=== PATIENT | female | born 1990 | race Hispanic/Latino ===

== ENCOUNTER 2017-11-01 03:59 | Outpatient (CLI) | payer OTHER | END 2017-11-01 04:00 | disposition home or self-care (01) | LOC: BICULT 03:59 | PROVIDERS: ATTEND Nurse Practitioner | DX: Z30.432 Encounter for removal of intrauterine contraceptive device (principal) | CPT/HCPCS: 76856 ==

== ENCOUNTER 2018-04-19 23:20 | Observation (INO) | payer SELFPAY ==
[2018-04-20] LABS: #Monocytes 0.7 thou/uL (0.11-0.59); #Neutrophils 14.4 thou/uL (1.40-6.50); %Basophils 0.1 % (0.0-1.0); %Eosinophils 0.1 % (0.0-10.0); %Lymphocytes 11.6 % (21.0-51.0); %Monocytes 4.2 % (0.0-10.0); Hemoglobin 11.1 g/dL (12.0-16.0); Mean Corpuscular HGB CONC 33.9 g/dL (32.0-36.0); Mean Corpuscular Hemoglobin 30.8 pg (27.0-31.0); Mean Corpuscular Volume 90.8 fl (81.0-99.0); Mean Platelet Volume 6.1 fL (7.4-10.4); Platelet Count 319 thou/uL (130-400); Red Blood Cell (RBC) Count 3.59 mill/uL (4.20-5.40); White Blood Cell (WBC) Count 17.1 thou/uL (4.8-10.8)
[2018-04-20] MEDS ORDERED: Midazolam HCl 2 mg/2 ml Vial ONE (00:13)
[2018-04-20] MEDS ORDERED: Bupivacaine HCl 0.5%/Epinephrine 1:200,000/PF 30 ml Vial ONE (00:13)
[2018-04-20] MEDS ORDERED: Fentanyl 250 MCG/5 ML VIAL ONE (00:13)
[2018-04-20] MEDS ORDERED: Fentanyl 100 MCG/2 ML VIAL ONE ×2 (00:21→03:33)
[2018-04-20] MEDS ORDERED: Promethazine HCl 25 MG/ML VIAL IM PRN (02:15)
[2018-04-20] MEDS ORDERED: Ondansetron HCl/PF 4 MG/2 ML Vial IVP PRN ×2 (02:15→03:13)
[2018-04-20] MEDS ORDERED: Promethazine HCl 25 MG/ML VIAL SLOW IVP PRN (02:15)
--- NOTE | 2018-04-20 02:40 | HP ---
DATE OF SERVICE: 04/20/2018 CHIEF COMPLAINT: Abdominal pain. HISTORY OF PRESENT ILLNESS: This is a 28-year-old, G3, P2 at approximately 6 weeks by last menstrual period, who presented to the emergency room with sudden onset of severe abdominal pain few hours ago . She reports that she just found out she was tonight at the emergency department. She den ies any significant vaginal bleeding or other concerns. REVIEW OF SYSTEMS: Negative for head, eyes, ears, nose, throat, cardiovascular, respiratory, GI, , neuro, psych, musculoskeletal, skin, or constitutional symptoms other than mentioned above. PAST MEDICAL HISTORY: None. PAST SURGICAL HISTORY: Eye surgery. MEDICATIONS: None. ALLERGIES: No known drug allergies. SOCIAL HISTORY: Negative for tobacco, alcohol, or drug abuse. FAMILY HISTORY: Noncontributory. OBSTETRIC AND GYNECOLOGIC HISTORY: Denies any history of STDs. Her last baby was 7 years ago. She has had 2 vaginal deliveries. PHYSICAL EXAMINATION: VITAL SIGNS: Blood pressure 76/47, pulse 85, respiratory rate 20, saturation 100% on room air. GENERAL: Awake, alert, appears uncomfortable, but in no acute distress. CHEST: Nonlabored breathing. ABDOMEN: Voluntary guarding. Tender to palpation in all quadrants. Positive rebound. IMAGING: Abdominal ultrasound was performed at bedside by Radiology revealing a soft tissue mass abo ve the uterus. No IUP. Positive free fluid. LABORATORY DATA: WBC 17.1, hemoglobin 11.1, hematocrit 32.6, platelets of 319,000. ASSESSMENT AND PLAN: A 28-year-old, G3, P2 with likely ruptured ectopic given the ultrasou nd findings and exam findings. Risks, benefits, and alternatives were discussed and the patient will proceed to the operating room for a diagnostic laparoscopy with likely salpingectomy.
[2018-04-20] MEDS ORDERED: Acetaminophen 325 MG TAB PO PRN (03:13)
[2018-04-20] MEDS ORDERED: Ondansetron ODT 4 MG TAB PO PRN (03:13)
--- NOTE | 2018-04-20 04:11 | OP ---
DATE OF SERVICE: 04/20/2018 PREOPERATIVE DIAGNOSIS: Suspected ruptured ectopic . POSTPROCEDURE DIAGNOSES: Ruptured right ectopic with hemoperitoneum. PROCEDURE PERFORMED: 1. Diagnostic laparoscopy with right salpingectomy and evacuation of hemoperitoneum. 2. Lysis of adhesions. SURGEON: Michelle Molina M.D. SEWING TRIMMER: None. ANESTHESIA: General endotracheal. COMPLICATIONS: None. ESTIMATED BLOOD LOSS: 25 mL with approximately 900 milliliters of hemoperitoneum. INDICATIONS: The patient was seen in the emergency room with abdominal pain, newly diagnosed pregnan cy and mass with free fluid in the abdomen. She was mildly hypertensive with an acute abdomen. FINDINGS: Normal appearing uterus, left tube appeared intact with some small adhesions to the omentu m. No masses were seen. Left ovary with multiple follicles and a small simple appearing cyst, right ovary was absent and the right fallopian tube was actively bleeding; however, the distal portion of the tube was absent as well. There was a large amount of hemoperitoneum noted. PROCEDURE IN DETAIL: The patient was taken to the operating room where general anesthesia was obtain ed without difficulty. She was prepared and draped in normal sterile fashion in the dorsal lithotomy position with Yellofin leg holders. A Coughlin catheter was placed. A [employer] uterine manipulator was a dvanced into the uterus without difficulty. Attention was turned to the abdomen where a 5 mm skin in cision was made in the infraumbilical fold. A Veress needle was advanced into the abdomen and the ab domen was insufflated with CO2 gas. The 5 mm trocar was advanced in the abdomen using a Visiport. A second 5 mm skin incision was made in the left lower quadrant and a 5 mm trocar was advanced into th e abdomen. The above findings were noted. The abdomen was suction irrigated. A 10 mm port was plac ed in the right lower quadrant. After careful examination of the left tube was noted to be essential ly normal with the exception of some mild adhesions and adherent blood clot. There was no active ble eding coming from the left adnexa. The right adnexa was noted to have the above findings. The remai misa portion of the tube was removed with LigaSure device with good hemostasis and that was sent to p athology. I spent approximately 30 minutes examining the abdomen for the other portion of the fallop barrington tube as well as the ectopic ; however, neither were visible. I suctioned as much blood and irrigation out of the abdomen if I could. The ports were then removed from the abdomen. The ski n was closed with 4-0 Monocryl and Dermabond. The incisions were injected with approximately 10 mL o f lidocaine. The patient tolerated the procedure well. Sponge, lap, and needle counts were correct x2. The patient was taken to recovery room in stable condition.
[2018-04-20 05:20] LABS: #Lymphocytes 0.7 thou/uL (1.20-3.40); #Monocytes 0.2 thou/uL (0.11-0.59); #Neutrophils 12.9 thou/uL (1.40-6.50); %Basophils 0.1 % (0.0-1.0); %Eosinophils 0.1 % (0.0-10.0); %Lymphocytes 4.8 % (21.0-51.0); %Monocytes 1.1 % (0.0-10.0); %Neutrophils 93.9 % (42.0-75.0); Hemoglobin 9.3 g/dL (12.0-16.0); Mean Corpuscular HGB CONC 33.8 g/dL (32.0-36.0); Mean Corpuscular Hemoglobin 30.5 pg (27.0-31.0); Mean Corpuscular Volume 90.3 fl (81.0-99.0); Mean Platelet Volume 6.5 fL (7.4-10.4); Platelet Count 217 thou/uL (130-400); RBC Distribution Width 12.9 % (11.5-14.5); Red Blood Cell (RBC) Count 3.05 mill/uL (4.20-5.40); White Blood Cell (WBC) Count 13.7 thou/uL (4.8-10.8)
[2018-04-20] MEDS: Sodium Chloride 0.9% 1,000 ML IV SCH ×2 (06:19→12:54)
[2018-04-20] MEDS ORDERED: Acetaminophen/Codeine 30-300mg Tablet PO PRN (06:24)
--- NOTE | 2018-04-20 06:33 | ULT ---
TRANSABDOMINAL AND TRANSVAGINAL PELVIC ULTRASOUND: 04/19/2018 PROVIDED CLINICAL HISTORY: Pelvic pain, . FINDINGS: Evaluation is limited. The service order dispatcher describes a midline pelvic soft tissue mass, measuring approx imately 8.5 x 7.9 x 7 cm. This is described as separate from the uterus. What is measured as the ut erus demonstrates no definite evidence for an intrauterine gestation. Free fluid is seen, to a mild degree, about the midline soft tissue mass. IMPRESSION: No sonographic evidence for intrauterine . There is an extrauterine pelvic soft tissue mass that could reflect an ectopic in the setting of a positive beta hCG value. These findings were communicated by the service order dispatcher to the clinician caring for the patient at the time of the exami sharon. POS: DANIEL
[2018-04-20] MEDS: Acetaminophen/Codeine 30-300mg Tablet PO PRN ×2 (06:45→09:09)
--- NOTE | 2018-04-20 07:30 | PRG ---
DATE OF SERVICE: 04/20/2018 SUBJECTIVE: The patient reports that she was feeling much better until she tried to get onto a bed p an and then she started having pain. She just received Tylenol #3. She has not urinated since her s urgery. She is also complaining of some pain in her right shoulder. OBJECTIVE: VITAL SIGNS: Blood pressure 98/54, pulse 83, respiratory rate 16, temperature 98.0. GENERAL: Awake, alert, in no acute distress. CHEST: Nonlabored breathing. ABDOMEN: Soft, but tender to palpation, some voluntary guarding, no rebound. LABORATORY DATA: Hemoglobin 9.3 down from 11.1, hematocrit 27.6 down from 32.6. ASSESSMENT AND PLAN: A 28-year-old G3, P2 status post diagnostic laparoscopy with right salpingectom y for ectopic . I explained the findings from her surgery including that I cannot find an i dentifiable gestational sac or the distal portion of her fallopian tube and recommend following seria l hCG levels until resolution. She is experiencing some pain this time and wishes to get up and go t o the bathroom. We will continue to monitor. I ordered a repeat H&H to continue trending. I will h and her over to my partner, Dr. Cevallos who will continue to follow her.
[2018-04-20 08:19] LABS: Hemoglobin 9.2 g/dL (12.0-16.0); Mean Corpuscular HGB CONC 35.2 g/dL (32.0-36.0); Mean Corpuscular Hemoglobin 31.7 pg (27.0-31.0); Mean Corpuscular Volume 89.8 fl (81.0-99.0); Platelet Count 230 thou/uL (130-400); RBC Distribution Width 12.8 % (11.5-14.5); White Blood Cell (WBC) Count 11.2 thou/uL (4.8-10.8)
[2018-04-20] MEDS ORDERED: Ketorolac Tromethamine 30 MG/ML VIAL IVP SCH (10:45)
[2018-04-20] MEDS ORDERED: Ondansetron HCl/PF 4 MG/2 ML Vial ONE (13:23)
[2018-04-20] MEDS ORDERED: ePHEDrine/0.9% NaCl/PF SYRINGE 50 mg/10 ml ONE (13:23)
[2018-04-20] MEDS ORDERED: Lidocaine 1% PF 5 ML VIAL ONE (13:23)
[2018-04-20] MEDS ORDERED: Dexamethasone 20 MG/5 ML VIAL ONE (13:23)
[2018-04-20] MEDS ORDERED: PHENYLEPHRINE-NS 100 MCG/ML 10 ML SYRINGE ONE (13:23)
[2018-04-20] MEDS ORDERED: Glycopyrrolate 0.2 MG/ML 5 ML SYRINGE ONE (13:23)
[2018-04-20] MEDS ORDERED: PROPOFOL 200 MG/20 ML VIAL ONE (13:23)
[2018-04-20] MEDS ORDERED: Succinylcholine Chloride 20 MG/ML 10 ml SYRINGE FS ONE (13:23)
[2018-04-20 14:49] LABS: Hemoglobin 9.6 g/dL (12.0-16.0); Mean Corpuscular Hemoglobin 30.7 pg (27.0-31.0); Mean Corpuscular Volume 90.4 fl (81.0-99.0); Mean Platelet Volume 6.3 fL (7.4-10.4); Platelet Count 246 thou/uL (130-400); RBC Distribution Width 12.9 % (11.5-14.5); Red Blood Cell (RBC) Count 3.14 mill/uL (4.20-5.40); White Blood Cell (WBC) Count 14.9 thou/uL (4.8-10.8)
[2018-04-20 15:17] LABS: CKMB 1.1 ng/mL (0-6.6); Troponin I Less than 0.010 ng/mL (< 0.028)
[2018-04-20 18:33] VITALS: BP 96/52; TEMP 98.2
--- NOTE | 2018-04-20 20:32 | EKG ---
Test Reason : Blood Pressure : / mmHG Vent. Rate : 062 BPM Atrial Rate : 062 BPM P-R Int : 118 ms QRS Dur : 092 ms QT Int : 414 ms P-R-T Axes : 076 076 057 degrees QTc Int : 420 ms Normal sinus rhythm Normal ECG No previous ECGs available Confirmed by DOTTIE CHU, DR. Correa ([id number]) on 04/20/2018 8:32:12 PM Referred By: DASH Confirmed By:DR. Madeline SINCLAIR MD
--- NOTE | 2018-04-21 01:28 | DIS ---
DATE OF ADMISSION: 04/19/2018 DATE OF DISCHARGE: 04/20/2018 ADMITTING DIAGNOSIS: Ruptured ectopic . DISCHARGE DIAGNOSIS: Ruptured ectopic . PROCEDURE: Diagnostic laparoscopy with evacuation of hemoperitoneum. One unit of packed red blood c ells transfused. CONSULTATIONS: None. HOSPITAL COURSE: The patient is a 28-year-old female, who presented to the emergency room with acute onset abdominal pain and was diagnosed with an ectopic , suspect for rupture. The patient was taken back by Dr. Molina for diagnostic laparoscopy where there was approximately 1 liter of blo od intraperitoneally. For complete details, please refer to the operative note. Patient was subsequ ently sent to recovery in stable condition and then to the floor for continued recovery. On hospital day #2, postop day #1, the patient reported continued abdominal pain throughout the day. She has hurtado d various complaints including chest heaviness, chest pain, abdominal pain, numbness in her face and hands. Serial CBC shows stable hemoglobin. EKG and cardiac enzymes were all negative. By the after noon, patient was reporting she is feeling a lot better and had good pain control with Tylenol #3 and Toradol. At time of discharge, patient's vital signs were 96/52, temperature of 98, pulse of 79, re spiratory rate of 18. In general, she appeared to be in no acute distress. She was alert and orient ed, cooperative and pleasant to interact with. She was sitting up and eating her meal. Her abdomen was appropriately tender, but soft. Heart was regular rate and rhythm. Lungs were clear. Her incis ions were clean, dry, and intact. Her hemoglobin at 2:30 in the afternoon was a white count of 14.9, hemoglobin of 9.6, hematocrit of 28.4, and platelets of 246,000. Cardiac enzymes again were all neg ative with a normal EKG. The patient is being discharged to home due to the inability to retrieve th e ectopic . At time of surgery, patient has been asked to come back next Tuesday for a repe at quantitative HCG. She has been given a script for that lab and has been asked [facility]. The patient will follow up with [facility] [place] in 2 weeks for her postoperative visit. The patient has been given instructions to seek medical attention sooner if she experiences f ever, increasing pain, or bleeding, or other concerning signs. The patient is being discharged to [facility] with Tylenol #3 #20 and ibuprofen 800 mg #30 and a note for that she can return to work in a week.
--- NOTE | 2018-04-25 21:56 | PRG ---
DATE OF SERVICE: 04/25/2018 HISTORY OF PRESENT ILLNESS: Patient is now about 5 days postop, an emergency diagnostic laparoscopy for ruptured ectopic . She came for a quantitative HCG because they were unable to find the ruptured ectopic and tube in the belly. Apparently, the entire tube had avulsed off of the uterus, and in the meantime, pathology has also returned from the remnant of the tube that was left and sent to pathology. I have shared that with the patient also today. 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 The slides are being sent for outside consultation and final results are pending. I have shared these results with the patient and stressed the importance of followup. In addition, we have reviewed the quantitative HCG results today which are 624 down from 6370 five to six days ago. I explained to the patient that this will need to be rechecked in a week and as long as it continues to fall to zero in the next few weeks, we can stretch out to once a month testing for 6 months and if it remains zero, then there is nothing else to worry about, nothing else to do. Patient has been co unseled again that she needs to make connection in an outpatient setting with [facility] enter where they can provide the appropriate care in the long-term. I have also stressed the importa nce to the patient that she be put on some sort of control or remain abstinent for the next 6 m onths. Patient has expressed understanding. She did confirm that she has been contacted by [facility] [place]. Patient will return to the hospital for quantitative HCG next week.
== END 2018-04-20 18:25 | disposition home or self-care (01) ==
LOC: ERS 23:20 → SDC/OP 04-20 01:50 → 3SW 04-20 03:31
PROVIDERS: ADMIT Obstetrics & Gynecology; ATTEND Obstetrics & Gynecology
PROC: 10T24ZZ Resection of Products of Conception, Ectopic, Percutaneous Endoscopic Approach (ICD-10-PCS; principal; 2018-04-20)
PROC: 0UT54ZZ Resection of Right Fallopian Tube, Percutaneous Endoscopic Approach (ICD-10-PCS; 2018-04-20)
DX: O00.101 Right tubal pregnancy without intrauterine pregnancy (principal); O08.1 Delayed or excessive hemorrhage following ectopic and molar pregnancy; Z3A.01 Less than 8 weeks gestation of pregnancy
CPT/HCPCS: 36415; 36430; 76856; 82553; 84484; 84702; 85025; 86850; 86900; 86901; 88305; 88325; 90384; 93005; 93010; 93976; 96361; 96372; 96374; 96375; G0378; J0670; J1100; J1885; J2001; J2250; J2405; J2704; J3010; P9016

== ENCOUNTER 2019-12-05 09:47 | Emergency (ER) | payer OTHER ==
--- NOTE | 2019-12-05 10:34 | RAD ---
EXAM: Chest PA and lateral: HISTORY: Dizziness. Blurred vision. COMPARISON: None FINDINGS: Heart: Normal cardiac silhouette Aorta: Unremarkable Pulmonary vessels: Normal Costophrenic angles: Costophrenic angles are clear. Lungs: No consolidation or masses. Pneumothorax: No pneumothorax Osseous structures: No osseous abnormalities IMPRESSION: No acute cardiopulmonary process.
[2019-12-05 11:06] LABS: #Eosinphils 0.1 thou/uL (0.0-0.7); #Lymphocytes 2.2 thou/uL (1.20-3.40); #Monocytes 0.4 thou/uL (0.11-0.59); #Neutrophils 5.6 thou/uL (1.40-6.50); %Basophils 0.1 % (0.0-1.0); %Eosinophils 1.1 % (0.0-10.0); %Lymphocytes 26.2 % (21.0-51.0); %Monocytes 4.7 % (0.0-10.0); %Neutrophils 67.9 % (42.0-75.0); Hemoglobin 14.1 g/dL (12.0-16.0); Mean Corpuscular HGB CONC 33.6 g/dL (32.0-36.0); Mean Corpuscular Hemoglobin 30.5 pg (27.0-31.0); Mean Corpuscular Volume 90.8 fL (78.0-98.0); Mean Platelet Volume 6.4 fL (7.4-10.4); Platelet Count 308 thou/uL (130-400); RBC Distribution Width 11.4 % (11.5-14.5); Red Blood Cell (RBC) Count 4.62 mill/uL (4.20-5.40); White Blood Cell (WBC) Count 8.3 thou/uL (4.8-10.8)
[2019-12-05 11:27] LABS: ALT (SGPT) 7 U/L (8-55); AST (SGOT) 14 U/L (5-34); Albumin 4.6 g/dL (3.5-5.0); Alkaline Phosphatase 100 U/L (40-110); Anion Gap 10 mmol/L (10-20); BUN (Urea Nitrogen) 7 mg/dL (7.0-18.7); Bilirubin, Total 0.4 mg/dL (0.2-1.2); Calc. Creatinine Clearance 0 mL/min (70-130); Calcium 9.1 mg/dL (7.8-10.44); Carbon Dioxide 25 mmol/L (22-29); Chloride 110 mmol/L (98-107); Estimated GFR-MDRD 86; Globulin 2.8 g/dL (2.4-3.5); Glucose 89 mg/dL (70-105); Protein, Total 7.4 g/dL (6.0-8.3); Sodium 141 mmol/L (136-145)
[2019-12-05 12:27] LABS: Bilirubin Negative (Negative); Blood, Urine Negative (Negative); Clarity Clear (Clear); Glucose, Urine (Dipstick) Normal (Negative); Leukocyte Negative Leu/uL (Negative); Nitrite Negative (Negative); Protein, Urine (Dipstick) Negative (Neg-Trace); Urobilinogen Normal mg/dL (Less than 2)
[2019-12-05 12:28] LABS: BHCG - Serum Negative (NEGATIVE); Pregs Control Background? CLEAR/WHITE (CLR/WHITE); Pregs Control Bar Appear? YES (CONTROL BAR)
== END 2019-12-05 13:48 | disposition home or self-care (01) ==
LOC: ERS 09:47
DX: R53.1 Weakness (principal); F41.9 Anxiety disorder, unspecified
CPT/HCPCS: 36415; 36416; 71046; 80053; 81003; 84484; 84703; 85025; 93005

== ENCOUNTER 2021-11-06 21:35 | Emergency (ER) | payer OTHER ==
[2021-11-06] MEDS ORDERED: Potassium Chloride 20 MEQ TAB ONE (21:54)
[2021-11-06] MEDS ORDERED: Magnesium 2 GM/50 ML BAG (IN WATER) ONE (21:54)
[2021-11-06 22:01] LABS: Actual Bicarbonate (HCO3a) 23.1 mEq/L (22-28); Analyzer IN Cardio ER; Base Excess (BEa) -0.5 mEq/L (-2.0 to +3.0); CO2 Tension 34.3 mmHg (35.0-45.0); Calcium, Ionized (arterial) 1.16 mmol/L (1.12-1.30); Carboxyhemoglobin (COHb) 0.9 gm% (0.0-3.0); O2 Tension (PaO2), arterial 116.8 mmHg (80.0-100.0); Potassium - ABG Lab 3.22 mmol/L (3.70-5.30); pH, Arterial 7.45 (7.35-7.45)
[2021-11-06 22:02] LABS: Puncture Site RRA
[2021-11-06 22:06] LABS: ALV-art Gradient 97.005 mmHg (0-20)
[2021-11-06] MEDS ORDERED: METHYLENE BLUE IV SCH (22:30)
[2021-11-06] MEDS ORDERED: DEXTROSE 5% IV SCH (22:30)
[2021-11-06] MEDS ORDERED: WATER IV SCH (22:30)
== END 2021-11-07 | disposition home or self-care (01) ==
LOC: ERS 21:35
DX: D74.9 Methemoglobinemia, unspecified (principal)
CPT/HCPCS: 36600; 82805; 96365; 96367; J3475; Q9968

== ENCOUNTER 2022-01-15 12:32 | Emergency (ER) | payer OTHER ==
[2022-01-15 12:50] LABS: Pregnancy Test - Urine (BHCG) Negative (Negative); Pregu Control Background? CLEAR/WHITE (CLR/WHITE); Pregu Control Bar Appear? YES (CONTROL BAR); Specific Gravity 1.014 (1.002-1.036)
[2022-01-15 12:52] LABS: Bacteria/HPF 1+ HPF (None Seen); Bilirubin 1+ (Negative); Blood, Urine Negative (Negative); Clarity Clear (Clear); Glucose, Urine (Dipstick) 50 mg/dL (Negative); Ketone, Urine Trace mg/dL (Negative); Leukocyte 75 Leu/uL (Negative); Nitrite 2+ (Negative); Protein, Urine (Dipstick) Negative (Neg-Trace); RBC/HPF 0-3 HPF (0-3); Specific Gravity, Urine 1.014 (1.002-1.036); Squamous Epithelial 0-3 HPF (0-3); Urobilinogen 3 mg/dL (Less than 2); WBC/HPF 21-50 HPF (0-3); pH, Urine 6.5 (5.0-9.0)
== END 2022-01-15 13:30 | disposition home or self-care (01) ==
LOC: ERS 12:32
DX: N30.00 Acute cystitis without hematuria (principal)
CPT/HCPCS: 81003; 81015; 81025; 87077; 87086; 87186; 99284